=== PATIENT | female | born 1990 | race Caucasian/White ===

== ENCOUNTER → 2021-04-22 13:42 | Outpatient (CLI) | payer OTHER, SELFPAY ==
--- NOTE | ~2021-04-22 | US_ITS ---
EXAMINATION: US thyroid EXAM DATE: 04/22/2021 14:03 INDICATION: Right neck mass palpable abnormality. TECHNIQUE: Multiple grayscale and Doppler images of the thyroid were obtained (by a technologist who performed the scan) and subsequently reviewed. Individual nodules and recommendations may be reporte d in accordance with TI-RADS system as designated by the 2017 ACR White Paper TI-RADS committee. Comp yeyo is made to prior examination from 11/26/2012. FINDINGS: Right thyroid lobe measures 5.7 x 1.7 x 2.0 cm, the left measuring 5.2 x 1.8 x 1.8 cm, mild thyromega ly. Mildly diffusely heterogeneous thyroid parenchyma. There is a left thyroid lobe nodule midpole deep aspect measuring 1.2 x 1.2 x 2.8 cm, solid (2 point s), hypoechoic (2 points), wider than tall, smooth well defined margin, without echogenic foci, categ ory TR4 for this nodule. Dimensions for this nodule on prior study 2012 were 1.2 x 1.1 x 2.2 cm, cor relate with the previous biopsy results. There is a smaller nodule in the right thyroid lobe midpole deep aspect measuring 1.2 x 0.8 x 1.2 cm, previously measuring 7 x 6 x 9 mm. IMPRESSION: Multinodular goiter, likely benign. Reviewed, dictated and finalized at location A.
== END ==
PROVIDERS: PCP Family Medicine
DX: E04.2 Nontoxic multinodular goiter (principal)
CPT/HCPCS: 76536

== ENCOUNTER 2022-12-07 13:04 | Emergency (ER) | payer OTHER, SELFPAY ==
[2022-12-07 13:18] VITALS: BP 115/86; PULSE 129; RESP 18; TEMP 38; O2SAT 98
--- NOTE | 2022-12-07 13:37 | ED.URI ---
HPI - URI/Sore Throat General Chief Complaint: Upper Respiratory Infection Stated Complaint: Bilateral Eye Irritation, Headache,Neck Pain Time Seen by Provider: 12/07/22 13:37 Source: patient Mode of arrival: ambulatory Limitations: no limitations History of Present Illness HPI Narrative: 32-year-old female presents with complaint of headache, neck pain and fever for 3 days. Reports that headache has been severe, causing photophobia. She vomited twice yesterday and 3 times today. She is alternating between Motrin and Tylenol and is not relieving her pain. she states her fever has been 102 F for 2 days. She is alert oriented. She states she had COVID 1 month ago and all symptoms resolved. She denies congestion, sore throat, cough. no abdominal pain. Denies diarrhea. All systems reviewed and negative except as noted above. Related Data Allergies Allergy/AdvReac Type Severity Reaction Status Date / Time cephalexin Allergy Unknown Skin Verified 12/07/22 13:20 Reaction Review of Systems Review of Systems: CONSTITUTIONAL: Reports fever EYES: Denies visual changes, redness, or discharge. reports photophobia And eye pain ENT: Denies rhinorrhea, congestion, sore throat, or otalgia. CARDIOVASCULAR: Denies chest pain, palpitations, or edema. RESPIRATORY: Denies cough or dyspnea. GASTROINTESTINAL: Denies abdominal pain, nausea, vomiting, or diarrhea. GENITOURINARY: Denies dysuria or hematuria. SKIN: Denies rash or itching. MUSCULOSKELETAL: Denies back pain, joint pain, or myalgia. reports neck pain. NEUROLOGIC: reports headache. Denies numbness, or weakness. PSYCHIATRIC: Denies anxiety or depression. All other systems reviewed are negative, except as documented in HPI. 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) Gastro-esophageal reflux IBS (irritable bowel syndrome) Pilonidal cyst (~2011) removal Skin tag Surgical History Surgical History (Updated 04/16/22 @ 09:04 by SIDDHARTHA Hopper) History of 01/12/14 primary c/s--arrest of descent 01/09/17 rpt c/s w/tubal ligation History of cholecystectomy (06/08/18) History of dilation and curettage (04/01/18) hscope d&c/Novasure ablation--dysmenorrhea, menometrorrhagia History of endometrial ablation (04/01/18) hscope d&c/Novasure ablation--dysmenorrhea, menometrorrhagia History of gynecological procedure (04/16/22) skin tag removal from left breast nipple History of robot-assisted laparoscopic hysterectomy (05/05/19) RA TLH--menometrorrhagia, dysmenorrhea, failed endometrial ablation History of tubal ligation (01/09/17) Family History Family History Sibling Family history of gastrointestinal disorder Father Family history of diabetes mellitus in first degree relative Family history of emphysema Grandparent Diabetes mellitus paternal grandfather Social History Social History Smoking status: Never smoker Alcohol intake: current Drinks per week: 2 Substance use: never Substance use type: does not use Living arrangements: other Additional living arrangements comments: 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 There is no relevant family history pertinent to the presenting complaint. Exam Narrative: GENERAL: This is a well-nourished, well-developed patient . Patient ill-appearing but no distress. She has a flushed appearance. HEAD: normocephalic, atraumatic. EYES: PERRL. Sclera clear/white. Vision is grossly intact. EARS
[2022-12-07 13:45] VITALS: TEMP 38
[2022-12-07] MEDS: ONDANSETRON HCL ODT 4 MG TABLET SUBLINGUAL (13:45)
[2022-12-07] MEDS: IBUPROFEN 600 MG TABLET PO (13:45)
== END 2022-12-07 14:07 | disposition short-term general hospital (02) ==
PROVIDERS: Emergency Provider Nurse Practitioner Family; PCP Family Medicine
DX: R51.9 Headache, unspecified (principal); M54.2 Cervicalgia; R50.9 Fever, unspecified; K21.9 Gastro-esophageal reflux disease without esophagitis; Z85.028 Personal history of other malignant neoplasm of stomach; Z86.16 Personal history of COVID-19
CPT/HCPCS: 87804; 99213; A9270; G0463

== ENCOUNTER 2022-12-07 14:15 | Emergency (ER) | payer OTHER, SELFPAY ==
[2022-12-07 14:16] VITALS: BP 142/99; PULSE 132; RESP 18; TEMP 37.2; O2SAT 99
[2022-12-07] MEDS: SODIUM CHLORIDE 0.9% IV 1,000 ML 999 ML IV CONT (15:15)
[2022-12-07 15:24] LABS: Basophils Percent Auto 0.6 % (0.2-1.2); Hematocrit 42.1 % (37.0-47.0); Hemoglobin 14.4 g/dL (12.0-15.0); Immature Granulocyte Absolute 0.01 K/mm3 (0.00-0.031); Immature Granulocyte Percent A 0.3 % (0-0.5); Immature Platelet Fraction Pct 4.9 % (0.9-11.2); Lymphocytes Absolute Auto 0.72 K/mm3 (0.9-3.2); Lymphocytes Percent Auto 19.9 % (18.3-44.2); Mean Corpuscular HGB Conc 34.2 g/dl (32-36); Mean Corpuscular Hemoglobin 29.9 pg (26-34); Mean Corpuscular Volume 87.5 fl (80-100); Mean Platelet Volume 10.3 fl (7.4-10.4); Monocytes Absolute Auto 0.3 K/mm3 (0.1-0.6); Monocytes Percent Auto 9.1 % (2.6-8.5); Neutrophils Absolute Auto 2.5 K/mm3 (1.3-6.7); Neutrophils Percent Auto 70.1 % (45.5-73.1); Platelet Count Result 150 k/mm3 (150-375); Red Blood Count 4.81 M/mm3 (4.2-5.4); Red Cell Distribution Width 12.5 % (11.5-14.5); White Blood Count 3.6 K/mm3 (4.5-10.0)
[2022-12-07 15:33] LABS: Alanine Aminotransferase 49 U/L (6-35); Albumin Level 4.2 g/dL (3.5-5.1); Alkaline Phosphatase 127 U/L (38-126); Anion Gap 6 mmol/L (8-16); Aspartate Amino Transferase 43 U/L (14-36); Bilirubin,Total 0.7 mg/dL (0.2-1.3); Blood Urea Nitrogen 9 mg/dL (7-17); Calcium 8.6 mg/dL (8.4-10.2); Carbon Dioxide 25 mmol/L (22-30); Chloride 103 mmol/L (98-107); Estimated CRCL calculation 116 ml/min; Estimated Glomerular Filt Rate > 60; Glucose 105 mg/dL (65-110); INR 1.2; Potassium 3.6 mmol/L (3.4-5.0); Prothrombin Time 14.5 Seconds (11.1-14.7); Sodium 134 mmol/L (137-145)
[2022-12-07 15:34] LABS: Partial Thromboplastin Time 37.9 SECONDS (22.3-36.8)
[2022-12-07 15:49] LABS: Monoscreen Negative (Negative); Negative Monotest Control Negative (Negative); Positive Monotest Control Positive (Positive)
[2022-12-07 15:52] LABS: Strep Group A RT-PCR NOT DETECTED (Negative)
--- NOTE | 2022-12-07 16:00 | PC.NURSE ---
patient unable to give urine sample at this time. EDP aware.
--- NOTE | 2022-12-07 16:03 | ED.GENADULT ---
HPI - General Adult General Chief complaint: Fever Stated complaint: Menengitis Time Seen by Provider: 12/07/22 14:21 History of Present Illness HPI narrative: Patient is a 32-year-old female who presents ER from the urgent care for further evaluation of fever/body aches/headache. Reports that 4 days ago patient began having fevers up to 102 ?F. She has been having some achiness in her neck going into her shoulders. She is also had some mild headache. Occasionally she will get pain behind her eyes and into her right jaw and had some photophobia yesterday. She has fullness in her right ear where she has a known ear tube from when she was younger. She reports she has taken ibuprofen and Tylenol which does help her pain. She has no electrical sensation going down her spine. No numbness or tingling to the arms or legs. Headache is posterior where the muscles attached to the skull. She has no limitation in her ability to move her head. 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 Denies sinus congestion or sore throat or cough. She did have some epistaxis earlier this morning on the left side. No headache at this time, just achiness in the neck bilaterally. Related Data Allergies Allergy/AdvReac Type Severity Reaction Status Date / Time cephalexin Allergy Unknown Skin Verified 12/07/22 15:17 Reaction Review of Systems Review of Systems: All systems reviewed & are unremarkable except as noted in HPI and below Constitutional: Constitutional: Reports chills, Reports fatigue and Reports fever(s) Eyes: Eyes: Reports photophobia (Yesterday with headache.) ENT: Reports epistaxis, Denies nasal congestion and Denies sore throat Comments: Right ear fullness Cardiovascular: Cardiovascular: Denies chest pain, Denies rapid heart rate and Denies radiating jaw, neck or arm pain Respiratory: Respiratory: Denies cough and Denies dyspnea Gastrointestinal: Gastrointestinal: Denies abdominal pain, Denies nausea and Denies vomiting Musculoskeletal: Musculoskeletal: Denies back pain, Reports myalgias, Denies arthralgias and Denies joint swelling Integumentary/Breasts: Skin/Breast: Denies erythema and Denies rash Neurologic: Denies confusion, Denies dizziness, Reports headache(s), Denies focal weakness and Denies numbness PMFSH Past Medical History Medical History Acne 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) Gastro-esophageal reflux IBS (irritable bowel syndrome) Pilonidal cyst (~2011) removal Skin tag Surgical History Surgical History (Updated 04/16/22 @ 09:04 by SIDDHARTHA Hopper) History of 01/12/14 primary c/s--arrest of descent 01/09/17 rpt c/s w/tubal ligation History of cholecystectomy (06/08/18) History of dilation and curettage (04/01/18) hscope d&c/Novasure ablation--dysmenorrhea, menometrorrhagia History of endometrial ablation (04/01/18) hscope d&c/Novasure ablation--dysmenorrhea, menometrorrhagia History of gynecological procedure (04/16/22) skin tag removal from left breast nipple History of robot-assisted laparoscopic hysterectomy (05/05/19) RA TLH--menometrorrhagia, dysmenorrhea, failed endometrial ablation History of tubal ligation (01/09/17) Family History Family History Sibling Family history of gastrointestinal disorder Father Family history of diabetes mellitus in first degree relative Family history of emphysema Grandparent Diabetes mellitus paternal grandfather Social History Social History Smoking status: Never smoker Alcohol intake: current Drinks per week: 2 Substance use: never Substance use type: does not use Living arrangements: other Additional living arrangements comments: 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
[2022-12-07 16:05] LABS: Influenza A QL RT-PCR Negative (Negative); Influenza B QL RT-PCR Negative (Negative); RSV RNA, RT-PCR Negative (Negative); SARS-CoV-2 RNA PCR Negative
[2022-12-07 16:23] VITALS: BP 128/79; PULSE 104; RESP 18; O2SAT 98
== END 2022-12-07 17:25 | disposition home or self-care (01) ==
PROVIDERS: Emergency Provider Emergency Medicine; PCP Family Medicine
DX: B34.9 Viral infection, unspecified (principal); Z20.822 Contact with and (suspected) exposure to COVID-19; K21.9 Gastro-esophageal reflux disease without esophagitis; K58.9 Irritable bowel syndrome, unspecified; Z90.710 Acquired absence of both cervix and uterus
CPT/HCPCS: 36415; 80053; 85025; 85055; 85610; 85730; 86308; 87637; 87651; 87804; 96360; 99283; A9270; J7030

== ENCOUNTER 2023-08-26 10:07 | Emergency (ER) | payer OTHER, SELFPAY ==
--- NOTE | 2023-08-26 10:11 | ED.URI ---
HPI - URI/Sore Throat General Chief Complaint: Upper Respiratory Infection Stated Complaint: Cough Time Seen by Provider: 08/26/23 10:30 Source: patient and RN notes reviewed Mode of arrival: ambulatory Limitations: no limitations History of Present Illness HPI Narrative: 33-year-old female presents concern for 3 week history of cough, chest congestion. She reports she has been taking Mucinex cough medicine without relief. She denies fever, aches chills sweats. Reports postnasal drainage. MD elicited complaint: cough Related Data Home Medications Medication Instructions Recorded Confirmed phentermine 15 mg capsule 15 mg PO DAILY 08/26/23 08/26/23 Allergies Allergy/AdvReac Type Severity Reaction Status Date / Time cephalexin Allergy Unknown Skin Verified 08/26/23 10:28 Reaction Review of Systems Review of Systems: CONSTITUTIONAL: Denies malaise, chills, sweats, or fever. EYES: Denies visual changes, redness, or discharge. ENT: Reports rhinorrhea, postnasal drainage. Denies congestion, sinus pain, otalgia and sore throat. CARDIOVASCULAR: Denies chest pain, palpitations, or edema. RESPIRATORY: Reports persists cough and chest congestion. Denies dyspnea. GASTROINTESTINAL: Denies abdominal pain, nausea, vomiting, diarrhea SKIN: Denies rash or itching. MUSCULOSKELETAL: Denies myalgia. NEUROLOGIC: Denies headache. 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) Gastro-esophageal reflux IBS (irritable bowel syndrome) Pilonidal cyst (~2011) removal Skin tag Surgical History Surgical History (Updated 04/16/22 @ 09:04 by SIDDHARTHA Hopper) History of 01/12/14 primary c/s--arrest of descent 01/09/17 rpt c/s w/tubal ligation History of cholecystectomy (06/08/18) History of dilation and curettage (04/01/18) hscope d&c/Novasure ablation--dysmenorrhea, menometrorrhagia History of endometrial ablation (04/01/18) hscope d&c/Novasure ablation--dysmenorrhea, menometrorrhagia History of gynecological procedure (04/16/22) skin tag removal from left breast nipple History of robot-assisted laparoscopic hysterectomy (05/05/19) RA TLH--menometrorrhagia, dysmenorrhea, failed endometrial ablation History of tubal ligation (01/09/17) Family History Family History Sibling Family history of gastrointestinal disorder Father Family history of diabetes mellitus in first degree relative Family history of emphysema Grandparent Diabetes mellitus paternal grandfather Social History Social History Smoking status: Never smoker Alcohol intake: current Drinks per week: 2 Substance use: never Substance use type: does not use Living arrangements: other Additional living arrangements comments: 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 There is no relevant family history pertinent to the presenting complaint Exam Narrative: GENERAL: Well-appearing, well-nourished, and in no acute distress. HEAD: Normocephalic EYES: PERRLA, conjunctivae clear ENT: Nares clear. Mucous membranes moist. TM pearly hodges with dull light reflex bilaterally; no tragal tenderness. Oropharynx not erythematous without lesions. Tonsils not enlarged and without exudate, no drooling, no hoarseness, no trismus, uvula midline. NECK: Supple. No lymphadenopathy CHEST: Expiratory wheeze, scattered rhonchi. breath sounds equal. No rales, or stridor. No respirator
[2023-08-26 10:15] VITALS: BP 128/84; PULSE 91; RESP 16; TEMP 37.1; O2SAT 100
== END 2023-08-26 10:42 | disposition home or self-care (01) ==
PROVIDERS: Emergency Provider Nurse Practitioner; PCP Internal Medicine
DX: J40 Bronchitis, not specified as acute or chronic (principal); K21.9 Gastro-esophageal reflux disease without esophagitis; Z85.028 Personal history of other malignant neoplasm of stomach
CPT/HCPCS: 99213; G0463

== ENCOUNTER → 2023-09-30 09:15 | Outpatient (CLI) | payer OTHER, SELFPAY ==
--- NOTE | ~2023-09-30 | US_ITS ---
US abdomen complete EXAMINATION: US Abdomen Complete INDICATION: Elevated liver function tests. PROCEDURE: Realtime High Resolution abdomen ultrasound. COMPARISON: No prior studies for comparison FINDINGS: Bladder is surgically absent. Common bile duct measures 5 mm. Liver is enlarged measuring 18.7 cm. There is fatty infiltration of the liver. Pancreas within normal limits. Pancreatic tail is obscured by bowel gas. Spleen is enlarged. Renal echotexture is within normal limits bilaterally without hydronephrosis, contour deforming mass or renal stone. Right kidney measures 10.3 cm. Left kidney measures 10.9 cm. Visualized aspects of the aorta and IVC are within normal limits. Portal vein is patent. No sonograph ic Guido's sign indicated by the technologist. IMPRESSION: 1: Hepatosplenomegaly with fatty infiltration of the liver. 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 IS [employer]
--- NOTE | ~2023-09-30 | US_ITS ---
US thyroid INDICATION: Follow-up thyroid nodules TECHNIQUE: Real-time sonographic images of the thyroid gland were obtained. COMPARISON: 04/22/2021 FINDINGS: The right thyroid lobe measures 5.7 x 2.2 x 1.8 cm. The left thyroid lobe measures 4.8 x 1 .9 x 1.7 cm. There is heterogeneous echotexture and echogenicity throughout the thyroid gland. No dis crete nodules identified. Normal vascular flow is present. IMPRESSION: 1. Mildly enlarged thyroid gland with heterogeneous echotexture. No discrete mass identified on the current study. 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 Mildly enlarged thyroid gland with heterogeneous echotexture. No discrete m ass identified on the current study.
== END ==
PROVIDERS: PCP Internal Medicine; Visit Provider Internal Medicine
DX: R74.8 Abnormal levels of other serum enzymes (principal); E04.1 Nontoxic single thyroid nodule; K76.0 Fatty (change of) liver, not elsewhere classified
CPT/HCPCS: 76536; 76700